=== PATIENT | male | born 1990 | race Two or more races ===

== ENCOUNTER 2020-04-08 05:38 | Emergency (ER) | payer BC ==
[~2020-04-08] VITALS: Ht 190.5 cm; Wt 110.0 kg
[2020-04-08] MEDS ORDERED: ONDANSETRON 2MG/ML, 2ML IVPush ONE (06:00)
[2020-04-08] MEDS ORDERED: KETOROLAC 30 MG/1 ML IVPush ONE (06:00)
[2020-04-08] MEDS ORDERED: SODIUM CHLORIDE 0.9% 1,000ML IVBOLUS ONE (06:00)
[2020-04-08] MEDS ORDERED: KETOROLAC 30 MG/1 ML ONE (06:09)
[2020-04-08] MEDS ORDERED: ONDANSETRON 2MG/ML, 2ML ONE (06:09)
[2020-04-08 06:20] LABS: MEAN CORPUSCULAR HGB CONC 34.5 g/dL (33.2-36.2); MEAN PLATELET VOLUME 8.2 fL (7.4-10.4); PLATELET COUNT 111 x10^3/uL (130-400); RED BLOOD COUNT 5.66 x10^6/uL (4.38-5.82); RED CELL DISTRIBUTION WIDTH 14.5 % (9.4-14.8)
[2020-04-08 06:28] LABS: ANION GAP 8 mmol/L (5-15); CALCIUM 8.3 mg/dL (8.5-10.1); CHLORIDE 104 mmol/L (98-107)
[2020-04-08 06:29] LABS: ALBUMIN 3.6 g/dL (3.4-5.0)
[2020-04-08 06:59] LABS: MD YES
[2020-04-08 07:01] LABS: <PLATELET ESTIMATE> DECREASED; <PLT MORPHOLOGY> NORMAL PLT MORPH; <RBC MORPHOLOGY> NORMAL; BAND#(MANUAL) 0.34 x10^3/uL; BANDS%(MANUAL) 11 % (0-7); LYMPH#(MANUAL) 0.43 x10^3/uL (1-3.4); LYMPHS% (MANUAL) 14 % (22-44); MONOS#(MANUAL) 0.22 x10^3/uL (0.3-2.7); MONOS% (MANUAL) 7 % (2-9); SEG#(MANUAL) 2.11 x10^3/uL (1.8-6.8); SEGS% (MANUAL) 68 % (42-75)
[2020-04-08 07:04] VITALS: BP 143/91
== END 2020-04-08 07:41 | disposition home or self-care (01) ==
LOC: ED 07:28
DX: J06.9 Acute upper respiratory infection, unspecified (principal); Z20.822 Contact with and (suspected) exposure to COVID-19; D69.3 Immune thrombocytopenic purpura; D70.9 Neutropenia, unspecified; B34.9 Viral infection, unspecified; R51.9 Headache, unspecified; R50.9 Fever, unspecified; M79.10 Myalgia, unspecified site; R00.0 Tachycardia, unspecified
CPT/HCPCS: 71045; 80048; 82040; 83605; 85025; 87635; 96361; 96374; 96375; 99284; J1885; J2405; J7030

== ENCOUNTER 2020-11-19 04:33 | Emergency (ER) | payer BC ==
[~2020-11-19] VITALS: Ht 190.5 cm; Wt 110.0 kg
--- NOTE | 2020-11-19 04:54 | NUR ---
Urine collected and sent to lab.
[2020-11-19 05:00] LABS: MICROSCOPIC NOT IND
[2020-11-19 08:27] VITALS: BP 134/90
--- NOTE | 2020-11-19 08:47 | NUR ---
Patient given discharge instructions and they have confirmed that they understand the instructions. Patient ambulatory with steady gait.
== END 2020-11-19 08:48 | disposition home or self-care (01) ==
LOC: ED 08:00
DX: S39.012A Strain of muscle, fascia and tendon of lower back, initial encounter (principal); R53.1 Weakness; X58.XXXA Exposure to other specified factors, initial encounter; Y93.89 Activity, other specified; Y92.89 Other specified places as the place of occurrence of the external cause; Y99.8 Other external cause status
CPT/HCPCS: 81003; 99283